=== PATIENT | male | born 1950 | race Caucasian/White ===

== ENCOUNTER 2020-01-31 02:38 | Inpatient (IN) | payer OTHER ==
[2020-01-31] VITALS (41 sets, daily range): BP systolic 91–135; BP diastolic 54–89
[~2020-01-31] VITALS: Ht 182.9 cm; Wt 45.4 kg
--- NOTE | ~2020-01-31 | EMS ---
[address] [address] EMS Patient Care Report Name: KATHERIN SIU Room #: 240-P ADM IN M.R.#: [id number] Admission: 01/31/20 Attend Phys: Elizabeth Gutiérrez MD Discharge: Date of : 54 Report #: [id number] THIS REPORT FOR: //name// Report Transmitted: 02/04/2020 07:59 EMS Care Summary [place], [place]/[facility] Incident [id number] @ 01/31/2020 01:52 Incident Location [address] [place] [address] 423 Patient KATHERIN SIU Male, 70 Years 1950 Patient Address [address] [place] [address] Patient History Stroke/CVA,Gastrointesinal Hemorrhage,Pneumonia,Sepsis,Respiratory Failure, Patient Allergies No known allergies, Patient Medications Metoprolol, Docusate Sodium, Oxycodone, Heparin, Lansoprazole, Aspirin, Acetaminophen, Baclofen, Albuterol, Hydralazine, Chief Complaint BREATHING DIFICULTY Disposition Transported [facility] Reason Breathing Problem Transported To [facility] Narrative DISPATCHED FOR A BREATHING PROBLEM. UPON ARRIVAL ON SCENE, WE HAD TO WAIT AT FRONT DOOR OF FACILITY TO BE LET IN BY STAFF. WE WERE THEN LED DOWN MULTIPLE HALLWAYS TO PT ROOM. UPON ARRIVAL AT ROOM, I WAS INFORMED BY STAFF: "HE MIGHT [address] [address] EMS Patient Care Report Name: KATHERIN SIU Room #: 240-P [facility] IN M.R.#: [id number] Admission: 01/31/20 Attend Phys: Elizabeth Gutiérrez MD Discharge: Date of : 54 Report #: [id number] HAVE IT (COVID-19), I DONT KNOW IF YOU WANT TO PUT ON A SUIT OR ANYTHING, HE IS REALLY NOT DOING GOOD THOUGH." I MADE THE DECISION TO ASSESS THE PT BASED ON HIS DESCRIBED LEVEL OF DISTRESS, BUT ASKED MY PARTNER TO REMAIN IN THE HALLWAY UNTIL I NEEDED HIS HELP. UPON ARRIVAL AT PT BEDSIDE, PT WAS FOUND LYING SUPINE, WITH A TRACHOTY TUBE AND SHIELD THAT WAS CONNECTED TO A SUPPLIED AIR RESPIRATOR PROVIDING HUMIDIFIED AIR. PT WAS LISTLESS AND CYANOTIC AND RESPONDED ONLY BY OPENING HIS EYES, ONLY WHEN I PROVIDED LOUD VERBAL STIMULI. AFTER RAPID INITIAL ASSESSMENT, I REMOVED RESPIRATOR AND PLACED A NRM OVER PT TRACH TO PROVIDE HIGH FLOW O2, DUE TO LOW O2 SATURATION. PT WAS THEN MOVED TO [facility] AND MOVEMENT TO AMBULANCE WAS INITIATED. AFTER A SHORT WHILE, PT BECAME MORE LIVELY AND ALERT AND AWARE OR HIS SURROUNDINGS. PT WAS MOVED INTO AMBULANCE WITHOUT ISSUE. IN AMBULANCE, PT O2 SATURATION WAS STILL NOT ADEQUATE AND HE WAS STILL TAKING SHALLOW RESPIRATIONS, SO I REMOVED NRB MASK AND PLACED A BVM ON TRACH TUBE SUPPLIED WITH 20 LPM SUPPLEMENTAL O2. PT WAS TRANSPORTED EMERGENCY. DURING TRANSPORT, PT STATUS BEGAN TO RAPIDLY IMPROVE. HIS SKIN COLOR AND TEMPERATURE IMPROVED AND HE WAS EVEN ABLE TO START NODDING HIS HEAD TO ANSWER SIMPLE QUESTIONS. WE ARRIVED AT ER AND BEGAN TO MOVE PT OUT OF AMBULANCE, PT INDICATED THAT HE WAS BREATHING MUCH BETTER AND FEELING MUCH BETTER BY NODDING HIS HEAD AND GIVING ME A THUMBS UP WHEN I ASKED HIM. PT WAS MOVED FROM GURNEY TO BED IN ER WITHOUT ISSUE AND PT CARE WAS GIVEN TO ER PHYSICIANS AND RESPIRATORY THERAPISTS. Initial Vitals @02:07P: 140,CO: 3,SpO2: 75, @02:22P: 138,R: 49,SpO2: 82, @02:10P: 139,R: 32,SpO2: 79, @02:23P: 139,R: 24,BP: 85/52,CO: 3,SpO2: 83, @02:26P: 137,R: 31,CO: 1,SpO2: 81, @02:09P: 139,R: 40,SpO2: 76, @02:08P: 140,R: 39,BP: 90/58,Pain: 8/10,GCS: 8,SpO2: 75,Revised Trauma: 9, @02:27P: 138,R: 31,CO: 1,SpO2: 82, @02:32P: 139,R: 35,CO: 0,SpO2: 87, @02:27P: 135,R: 27,BP: 99/72,Pain: 6/10,GCS: 15,CO: 0,SpO2: 87,Revised Trauma: 12,NV Suspected: false @02:24R: 36,CO: 2,SpO2: 81, @02:08P: 139,R: 46,CO: 4,SpO2: 74,NV Suspected: false @02:06P: 130,R: 40,Pain: 8/10,GCS: 8, @02:12P: 142,R: 40,Pain: 8/10,GCS: 12,SpO2: 80,NV Suspected: false Assessments @02:06MENTAL:Confused,Person Oriented,SKIN:Cyanotic,Cold,Diaphoresis,Pale,HEENT:Neck/Airway: Other,Eyes: Right: Other,Eyes: Left: Other,Head/Face: No Abnormalities,LUNG SOUNDS:Right [facility] [address] [place] [address] EMS Patient Care Report Name: KATHERIN SIU Room #: 240-P ADM IN M.R.#: [id number] Admission: 01/31/20 Attend Phys: Elizabeth Gutiérrez MD Discharge: Date of : 54 Report #: [id number] Upper: Other,General: No Abnormalities,Left Upper: No Abnormalities,Left Lower: No Abnormalities,Right Lower: No Abnormalities,ABDOMEN:Right Upper: Other,General: No Abnormalities,Left Upper: No Abnormalities,Left Lower: No Abnormalities,Right Lower: No Abnormalities,PELVIS//GI:Pelvis GUOther,EXTREMITIES:Left Leg: Weakness,Right Arm: Weakness,Right Leg: Weakness,Left Arm: Weakness,Capillary Refill: Right Upper: > 5 Sec,Capillary Refill: Left Upper: > 5 Sec,PULSE:Radial: 1+ Thready,NEURO:No Abnormalities,@02:22MENTAL:Person Oriented,Event Oriented,Place Oriented,SKIN:Cyanotic,Pale,Diaphoresis,HEENT:Neck/Airway: Other,Head/Face: No Abnormalities,LUNG SOUNDS:Right Upper: Other,General: No Abnormalities,Left Upper: No Abnormalities,Left Lower: No Abnormalities,Right Lower: No Abnormalities,ABDOMEN:Right Upper: Other,General: No Abnormalities,Left Upper: No Abnormalities,Left Lower: No Abnormalities,Right Lower: No Abnormalities,PELVIS//GI:EXTREMITIES:Right Arm: Weakness,Right Leg: Weakness,Left Arm: Weakness,Left Leg: Weakness,Capillary Refill: Right Upper: 3 Sec,Capillary Refill: Left Upper: 3 Sec,PULSE:Radial: 1+ Thready,NEURO:No Abnormalities, Impression Shortness of breath Procedures @02:1012-Lead ECGResponse: UnchangedSucceeded@02:08Oxygen FlowRate: 15 Device: Non Re-breather Mask (NRB) Response: ImprovedSucceeded@02:11StretcherResponse: Unchanged@02:19Oxygen FlowRate: 20 Device: Bag Valve Mask (BVM) Response: ImprovedSucceeded@02:06ALS AssessmentResponse: UnchangedSucceeded@02:083-Lead ECGResponse: UnchangedSucceeded Timeline 01:50,Call Received 01:50,Dispatch Notified 01:52,Dispatched 01:55,En Route 02:01,On Scene 02:06,At Patient 02:06,ALS Assessment,Response: UnchangedSucceeded, 02:06,BP: / M,PULSE: 130,RR: 40 R,SPO2: Ox,ETCO2: ,BG: ,PAIN: 8,GCS: 8, 02:07,BP: / M,PULSE: 140,RR: R,SPO2: 75 Ox,ETCO2: ,BG: ,PAIN: ,GCS: , 02:08,Oxygen FlowRate: 15 Device: Non Re-breather Mask (NRB) Response: ImprovedSucceeded, 02:08,3-Lead ECG,Response: UnchangedSucceeded, 02:08,BP: / M,PULSE: 139,RR: 46 R,SPO2: 74 Ox,ETCO2: ,BG: ,PAIN: ,GCS: , 02:08,BP: 90/58 M,PULSE: 140,RR: 39 R,SPO2: 75 Ox,ETCO2: ,BG: ,PAIN: 8,GCS: 8, 02:09,BP: / M,PULSE: 139,RR: 40 R,SPO2: 76 Ox,ETCO2: ,BG: ,PAIN: ,GCS: , 02:10,12-Lead ECG,Response: UnchangedSucceeded, 02:10,BP: / M,PULSE: 139,RR: 32 R,SPO2: 79 Ox,ETCO2: ,BG: ,PAIN: ,GCS: , [facility] [address] [place] [address] EMS Patient Care Report Name: KATHREIN SIU Room #: 240-P ADM IN M.R.#: [id number] Admission: 01/31/20 Attend Phys: Elizabeth Gutiérrez MD Discharge: Date of : 54 Report #: [id number] 02:11,Stretcher,Response: Unchanged 02:12,BP: / M,PULSE: 142,RR: 40 R,SPO2: 80 Ox,ETCO2: ,BG: ,PAIN: 8,GCS: 12, 02:19,Oxygen FlowRate: 20 Device: Bag Valve Mask (BVM) Response: ImprovedSucceeded, 02:22,Depart Scene 02:22,BP: / M,PULSE: 138,RR: 49 R,SPO2: 82 Ox,ETCO2: ,BG: ,PAIN: ,GCS: , 02:23,BP: 85/52 M,PULSE: 139,RR: 24 R,SPO2: 83 Ox,ETCO2: ,BG: ,PAIN: ,GCS: , 02:24,BP: / M,PULSE: ,RR: 36 R,SPO2: 81 Ox,ETCO2: ,BG: ,PAIN: ,GCS: , 02:26,BP: / M,PULSE: 137,RR: 31 R,SPO2: 81 Ox,ETCO2: ,BG: ,PAIN: ,GCS: , 02:27,BP: / M,PULSE: 138,RR: 31 R,SPO2: 82 Ox,ETCO2: ,BG: ,PAIN: ,GCS: , 02:27,BP: 99/72 M,PULSE: 135,RR: 27 R,SPO2: 87 Ox,ETCO2: ,BG: ,PAIN: 6,GCS: 15, 02:29,At Destination 02:32,BP: / M,PULSE: 139,RR: 35 R,SPO2: 87 Ox,ETCO2: ,BG: ,PAIN: ,GCS: , 03:54,Call Closed Disclaimer v1.1 Copyright 2020 [employer] This EMS Care Summary contains data elements from the applicable legal record (which may be displayed differently). It is designed to provide pertinent information for the following purposes: continuity of care, clinical quality, and state data reporting. The complete legal record is available to ED staff and administrators of the receiving hospital in [employer]'s Patient Tracker. All data is provided "as is."
--- NOTE | ~2020-01-31 | EMS ---
[facility] [address] [place] [address] EMS Patient Care Report Name: KATHERIN SIU Room #: PRE M.R.#: [id number] Admission: Attend Phys: Discharge: Date of : 54 Report #: [id number] THIS REPORT FOR: //name// Report Transmitted: 01/31/2020 03:00 EMS Care Summary [place], [place]/[facility] Incident [id number] @ 01/31/2020 01:52 Incident Location [address] [place] [address] 423 Patient KATHERIN SIU Male, 70 Years 1950 Patient Address [address] [place] [address] Patient History Stroke/CVA,Gastrointesinal Hemorrhage,Pneumonia,Sepsis,Respiratory Failure, Patient Allergies No known allergies, Patient Medications Metoprolol, Docusate Sodium, Oxycodone, Heparin, Lansoprazole, Aspirin, Acetaminophen, Baclofen, Albuterol, Hydralazine, Chief Complaint BREATHING DIFICULTY Disposition Transported Lights/[facility] Dispatch Reason Breathing Problem Transported To [facility] Narrative DISPATCHED FOR A BREATHING PROBLEM. UPON ARRIVAL ON SCENE, WE HAD TO WAIT AT FRONT DOOR OF FACILITY TO BE LET IN BY STAFF. WE WERE THEN LED DOWN MULTIPLE HALLWAYS TO PT ROOM. UPON ARRIVAL AT ROOM, I WAS INFORMED BY STAFF: "HE MIGHT [facility] [address] [place] [address] EMS Patient Care Report Name: KATHERIN SIU Room #: PRE Radha#: [id number] Admission: Attend Phys: Discharge: Date of : 54 Report #: [id number] HAVE IT (COVID-19), I DONT KNOW IF YOU WANT TO PUT ON A SUIT OR ANYTHING, HE IS REALLY NOT DOING GOOD THOUGH." I MADE THE DECISION TO ASSESS THE PT BASED ON HIS DESCRIBED LEVEL OF DISTRESS, BUT ASKED MY PARTNER TO REMAIN IN THE HALLWAY UNTIL I NEEDED HIS HELP. UPON ARRIVAL AT PT BEDSIDE, PT WAS FOUND LYING SUPINE, WITH A TRACHOTY TUBE AND SHIELD THAT WAS CONNECTED TO A SUPPLIED AIR RESPIRATOR PROVIDING HUMIDIFIED AIR. PT WAS LISTLESS AND CYANOTIC AND RESPONDED ONLY BY OPENING HIS EYES, ONLY WHEN I PROVIDED LOUD VERBAL STIMULI. AFTER RAPID INITIAL ASSESSMENT, I REMOVED RESPIRATOR AND PLACED A NRM OVER PT TRACH TO PROVIDE HIGH FLOW O2, DUE TO LOW O2 SATURATION. PT WAS THEN MOVED TO [facility] AND MOVEMENT TO AMBULANCE WAS INITIATED. AFTER A SHORT WHILE, PT BECAME MORE LIVELY AND ALERT AND AWARE OR HIS SURROUNDINGS. PT WAS MOVED INTO AMBULANCE WITHOUT ISSUE. IN AMBULANCE, PT O2 SATURATION WAS STILL NOT ADEQUATE AND HE WAS STILL TAKING SHALLOW RESPIRATIONS, SO I REMOVED NRB MASK AND PLACED A BVM ON TRACH TUBE SUPPLIED WITH 20 LPM SUPPLEMENTAL O2. PT WAS TRANSPORTED EMERGENCY. DURING TRANSPORT, PT STATUS BEGAN TO RAPIDLY IMPROVE. HIS SKIN COLOR AND TEMPERATURE IMPROVED AND HE WAS EVEN ABLE TO START NODDING HIS HEAD TO ANSWER SIMPLE QUESTIONS. WE ARRIVED AT ER AND BEGAN TO MOVE PT OUT OF AMBULANCE, PT INDICATED THAT HE WAS BREATHING MUCH BETTER AND FEELING MUCH BETTER BY NODDING HIS HEAD AND GIVING ME A THUMBS UP WHEN I ASKED HIM. PT WAS MOVED FROM GURNEY TO BED IN ER WITHOUT ISSUE AND PT CARE WAS GIVEN TO ER PHYSICIANS AND RESPIRATORY THERAPISTS. Initial Vitals @02:07P: 140,CO: 3,SpO2: 75, @02:22P: 138,R: 49,SpO2: 82, @02:10P: 139,R: 32,SpO2: 79, @02:23P: 139,R: 24,BP: 85/52,CO: 3,SpO2: 83, @02:26P: 137,R: 31,CO: 1,SpO2: 81, @02:09P: 139,R: 40,SpO2: 76, @02:08P: 140,R: 39,BP: 90/58,Pain: 8/10,GCS: 8,SpO2: 75,Revised Trauma: 9, @02:27P: 138,R: 31,CO: 1,SpO2: 82, @02:32P: 139,R: 35,CO: 0,SpO2: 87, @02:27P: 135,R: 27,BP: 99/72,Pain: 6/10,GCS: 15,CO: 0,SpO2: 87,Revised Trauma: 12,[place] Suspected: false @02:24R: 36,CO: 2,SpO2: 81, @02:08P: 139,R: 46,CO: 4,SpO2: 74,NJ Suspected: false @02:06P: 130,R: 40,Pain: 8/10,GCS: 8, @02:12P: 142,R: 40,Pain: 8/10,GCS: 12,SpO2: 80,N[place] Suspected: false Assessments @02:06MENTAL:Confused,Person Oriented,SKIN:Cyanotic,Cold,Diaphoresis,Pale,HEENT:Neck/Airway: Other,Eyes: Right: Other,Eyes: Left: Other,Head/Face: No Abnormalities,LUNG SOUNDS:Right [facility] [address] [place] [address] EMS Patient Care Report Name: KATHERIN SIU Room #: PRE M.R.#: [id number] Admission: Attend Phys: Discharge: Date of : 54 Report #: [id number] Upper: Other,General: No Abnormalities,Left Upper: No Abnormalities,Left Lower: No Abnormalities,Right Lower: No Abnormalities,ABDOMEN:Right Upper: Other,General: No Abnormalities,Left Upper: No Abnormalities,Left Lower: No Abnormalities,Right Lower: No Abnormalities,PELVIS//GI:Pelvis GUOther,EXTREMITIES:Left Leg: Weakness,Right Arm: Weakness,Right Leg: Weakness,Left Arm: Weakness,Capillary Refill: Right Upper: > 5 Sec,Capillary Refill: Left Upper: > 5 Sec,PULSE:Radial: 1+ Thready,NEURO:No Abnormalities,@02:22MENTAL:Person Oriented,Event Oriented,Place Oriented,SKIN:Cyanotic,Pale,Diaphoresis,HEENT:Neck/Airway: Other,Head/Face: No Abnormalities,LUNG SOUNDS:Right Upper: Other,General: No Abnormalities,Left Upper: No Abnormalities,Left Lower: No Abnormalities,Right Lower: No Abnormalities,ABDOMEN:Right Upper: Other,General: No Abnormalities,Left Upper: No Abnormalities,Left Lower: No Abnormalities,Right Lower: No Abnormalities,PELVIS//GI:EXTREMITIES:Right Arm: Weakness,Right Leg: Weakness,Left Arm: Weakness,Left Leg: Weakness,Capillary Refill: Right Upper: 3 Sec,Capillary Refill: Left Upper: 3 Sec,PULSE:Radial: 1+ Thready,NEURO:No Abnormalities, Impression Shortness of breath Procedures @02:1012-Lead ECGResponse: UnchangedSucceeded@02:08Oxygen FlowRate: 15 Device: Non Re-breather Mask (NRB) Response: ImprovedSucceeded@02:11StretcherResponse: Unchanged@02:19Oxygen FlowRate: 20 Device: Bag Valve Mask (BVM) Response: ImprovedSucceeded@02:06ALS AssessmentResponse: UnchangedSucceeded@02:083-Lead ECGResponse: UnchangedSucceeded Timeline 01:50,Call Received 01:50,Dispatch Notified 01:52,Dispatched 01:55,En Route 02:01,On Scene 02:06,At Patient 02:06,ALS Assessment,Response: UnchangedSucceeded, 02:06,BP: / M,PULSE: 130,RR: 40 R,SPO2: Ox,ETCO2: ,BG: ,PAIN: 8,GCS: 8, 02:07,BP: / M,PULSE: 140,RR: R,SPO2: 75 Ox,ETCO2: ,BG: ,PAIN: ,GCS: , 02:08,Oxygen FlowRate: 15 Device: Non Re-breather Mask (NRB) Response: ImprovedSucceeded, 02:08,3-Lead ECG,Response: UnchangedSucceeded, 02:08,BP: / M,PULSE: 139,RR: 46 R,SPO2: 74 Ox,ETCO2: ,BG: ,PAIN: ,GCS: , 02:08,BP: 90/58 M,PULSE: 140,RR: 39 R,SPO2: 75 Ox,ETCO2: ,BG: ,PAIN: 8,GCS: 8, 02:09,BP: / M,PULSE: 139,RR: 40 R,SPO2: 76 Ox,ETCO2: ,BG: ,PAIN: ,GCS: , 02:10,12-Lead ECG,Response: UnchangedSucceeded, 02:10,BP: / M,PULSE: 139,RR: 32 R,SPO2: 79 Ox,ETCO2: ,BG: ,PAIN: ,GCS: , [facility] [address] [facility] [place] [address] EMS Patient Care Report Name: KATHERIN SIU Room #: PRE ER M.R.#: [id number] Admission: Attend Phys: Discharge: Date of : 54 Report #: [id number] 02:11,Stretcher,Response: Unchanged 02:12,BP: / M,PULSE: 142,RR: 40 R,SPO2: 80 Ox,ETCO2: ,BG: ,PAIN: 8,GCS: 12, 02:19,Oxygen FlowRate: 20 Device: Bag Valve Mask (BVM) Response: ImprovedSucceeded, 02:22,Depart Scene 02:22,BP: / M,PULSE: 138,RR: 49 R,SPO2: 82 Ox,ETCO2: ,BG: ,PAIN: ,GCS: , 02:23,BP: 85/52 M,PULSE: 139,RR: 24 R,SPO2: 83 Ox,ETCO2: ,BG: ,PAIN: ,GCS: , 02:24,BP: / M,PULSE: ,RR: 36 R,SPO2: 81 Ox,ETCO2: ,BG: ,PAIN: ,GCS: , 02:26,BP: / M,PULSE: 137,RR: 31 R,SPO2: 81 Ox,ETCO2: ,BG: ,PAIN: ,GCS: , 02:27,BP: / M,PULSE: 138,RR: 31 R,SPO2: 82 Ox,ETCO2: ,BG: ,PAIN: ,GCS: , 02:27,BP: 99/72 M,PULSE: 135,RR: 27 R,SPO2: 87 Ox,ETCO2: ,BG: ,PAIN: 6,GCS: 15, 02:29,At Destination 02:32,BP: / M,PULSE: 139,RR: 35 R,SPO2: 87 Ox,ETCO2: ,BG: ,PAIN: ,GCS: , 03:54,Call Closed Disclaimer v1.1 Copyright 2020 [employer] This EMS Care Summary contains data elements from the applicable legal record (which may be displayed differently). It is designed to provide pertinent information for the following purposes: continuity of care, clinical quality, and state data reporting. The complete legal record is available to ED staff and administrators of the receiving hospital in [facility]'s Patient Tracker. All data is provided "as is."
[2020-01-31] MEDS ORDERED: HYDRALAZIN20 MG/1 ML IV (03:24)
[2020-01-31] MEDS ORDERED: OXYCODONE HYDROC5 GM PER TUBE (03:25)
[2020-01-31] MEDS ORDERED: OZOBAX5 MG/5 ML PER TUBE (03:25)
[2020-01-31] MEDS ORDERED: LOPRESSOR50 MG PER TUBE (03:26)
[2020-01-31] MEDS ORDERED: DULCOLAX STOOL100 M1 PER TUBE (03:26)
[2020-01-31] MEDS ORDERED: PREVACID30 M2 PER TUBE (03:28)
[2020-01-31] MEDS ORDERED: HEPARIN SO1000 UNIT2 SUBQ (03:29)
[2020-01-31] MEDS ORDERED: IPRAT-ALBUT 0.5-3 ML INH (03:29)
[2020-01-31] MEDS ORDERED: CHILDREN'S ASPI81 MG PER TUBE (03:30)
[2020-01-31] MEDS ORDERED: PERIDEX15 ML MUCOUS MEM (03:31)
[2020-01-31 03:32] LABS: ABSOLUTE NEUTROPHILS 15.3 thou/uL (1.4-8.2); BASOPHILS 0.2 % (0.0-2.0); HEMATOCRIT 32.9 % (42.0-52.0); HEMOGLOBIN 10.4 gm/dL (14.0-18.0); LYMPHOCYTES 1.9 % (24.0-44.0); MCH 26.9 pg (26.0-34.0); MCHC 31.6 g/dL (28.0-37.0); MONOCYTES 3.5 % (1.0-8.0); PLATELET COUNT 443 thou/uL (150-400); POLYS 94.4 % (36.0-66.0); RBC 3.87 mil/uL (4.50-6.00); RDW 22.9 % (10.5-14.5); WBC 16.2 thou/uL (4.0-11.0)
[2020-01-31] MEDS ORDERED: MEROPENEM1 GM IV (03:32)
[2020-01-31] MEDS ORDERED: XERAVA IV (03:34)
[2020-01-31] MEDS ORDERED: PERFOROMIS20 MCG/2 M INH (03:34)
[2020-01-31] MEDS ORDERED: TYLENOL325 MG PER TUBE (03:35)
[2020-01-31 03:42] LABS: ANION GAP 8 mmol/L (7-16); BUN 20 mg/dL (7-18); CALCIUM 9.3 mg/dL (8.5-10.1); CHLORIDE 99 mmol/L (98-107); CO2 30 mmol/L (21-32); CREATININE 0.7 mg/dL (0.7-1.3); GLUCOSE 133 mg/dL (74-106); SODIUM 137 mmol/L (136-145)
[2020-01-31 03:48] LABS: ALBUMIN 2.8 g/dL (3.4-5.0); DIRECT BILIRUBIN < 0.1 mg/dL (<0.1-0.2); SGOT 18 U/L (15-37); SGPT 20 U/L (30-65); TOTAL BILIRUBIN 0.4 mg/dL (0.2-1.0); TOTAL PROTEIN 7.4 g/dL (6.4-8.2)
--- NOTE | 2020-01-31 04:02 | NUR ---
ATTEMPTED TO CONTACT TANYA FLOREZMikala, [phone]- NO ANSWER NO ANSWER AT SECOND NUMBER, NOT VALID PHONE LISTING- JESUS SIU
[2020-01-31 04:03] LABS: BE(vivo) 0.1 mmol/L (-2 to +3); HCO3 22.4 mmol/L (22.0-26.0); PCO2 28.7 mmHg (35.0-45.0); PO2 216.2 mmHg (80.0-100.0); sO2 99.6 % (92.0-98.0)
[2020-01-31 04:18] LABS: URINE BILIRUBIN NEGATIVE (Negative); URINE BLOOD NEGATIVE (Negative); URINE CLARITY CLEAR; URINE COLOR YELLOW; URINE GLUCOSE-RANDOM* NEGATIVE (Negative); URINE KETONES NEGATIVE (Negative); URINE LEUKOCYTES-REFLEX NEGATIVE (Negative); URINE NITRITE-REFLEX NEGATIVE (Negative); URINE PROTEIN (DIPSTICK) 2+ (Negative); URINE SPECIFIC GRAVITY >= 1.030 (1.005-1.035); URINE UROBILINOGEN 0.2 E.U./dl (0.2-1.0)
[2020-01-31 04:58] LABS: BACTERIA-REFLEX 1-9 Few /HPF (None Seen); CASTS None Seen /LPF (None Seen); CRYSTALS None Seen /LPF (None Seen); MUCUS 4-6 Moderate strn/LPF (None Seen); SQUAMOUS 0-3 Few /LPF (0-3); URINE RBC 0-2 Rare /HPF (0-2); URINE WBC-REFLEX 0-5 Rare /HPF (0-5)
--- NOTE | 2020-01-31 06:40 | NUR ---
report called no answer
--- NOTE | 2020-01-31 08:15 | NUR ---
Pt admitted to ICU from the emergency deptl.l Pt is awake and alert. Pt is able to follow simple requests. Sinus tachycardia. Pt placed on the vent by RT. No apparent distress. See admission history.
[2020-01-31 17:27] LABS: BE(vivo) -2.4 mmol/L (-2 to +3); HCO3 20.9 mmol/L (22.0-26.0); PCO2 30.8 mmHg (35.0-45.0); PO2 99.9 mmHg (80.0-100.0); sO2 97.9 % (92.0-98.0)
--- NOTE | 2020-01-31 18:40 | NUR ---
Pt has not voided since arrival in ICU this morning. Unable to void in urinal. Bladder scan done with 294 ml of urine noted in bladder. An cathter placed per order from Dr Gutiérrez to insert if residual greater than 250 ml. Incontinent of loose stool following administration of suppository. Pt's son Pantera was contacted of admission to the hospital and provided with contact phone number and pt's privacy code. Covid test is pending. Maintained in isolation. Report given to RN assuming care.
[2020-02-01] VITALS (28 sets, daily range): BP systolic 106–156; BP diastolic 66–111
[2020-02-01 03:57] LABS: HCO3 21.7 mmol/L (22.0-26.0); PCO2 37.1 mmHg (35.0-45.0); PO2 157.9 mmHg (80.0-100.0); pH 7.384 (7.360-7.450)
[2020-02-01 06:10] LABS: HEMATOCRIT 25.1 % (42.0-52.0); MCH 27.8 pg (26.0-34.0); MCHC 32.2 g/dL (28.0-37.0); MCV 86.2 fL (80.0-100.0); RBC 2.92 mil/uL (4.50-6.00); RDW 23.4 % (10.5-14.5); WBC 7.5 thou/uL (4.0-11.0)
[2020-02-01 06:18] LABS: CREATININE 0.5 mg/dL (0.7-1.3)
[2020-02-01 06:19] LABS: HEMOGLOBIN 8.1 gm/dL (14.0-18.0)
--- NOTE | 2020-02-01 07:30 | NUR ---
Heparin gtt therapeutic x 2 lab draws. No signs of bleeding. Pt had 2 small stools during the night. Both were soft and unformed with some mucous. Remains on 40% FiO2 per vent; suctioning small to moderate amounts of thin yellow sputum about q 4 hours. Urine output 450 cc for this shift. PEG remains to LIS. Monitor SR to ST (86 to 106 heart rate).
--- NOTE | 2020-02-01 07:56 | EKG ---
[facility] [place] [address] ELECTROCARDIOGRAM REPORT Name: KATHERIN SIU Room #: 240-P ADM IN M.R.#: [id number] Admission: 01/31/20 Attend Phys: Elizabeth Gutiérrez MD Discharge: Date of : 54 Report #: [id number] THIS REPORT FOR: cc: [facility] - Clinic physician unknown [facility] - Clinic physician unknown Iglesia Palomino MD ~ THIS REPORT FOR: //name// [facility] ED Test Date: 2020-01-31 Test Time: 02:55:27 Pat Name: KATHERIN SIU Department: Room: 240 P Gender: M Monitoring Analyst: JOSE BERMAN : 1950 Requested By: Scottie Yan Order Number: [id number] MD: Iglesia Palomino Measurements Intervals [place] Rate: 130 P: 77 KS: 133 QRS: -42 QRSD: 86 T: 86 QT: 301 QTc: 443 Interpretive Statements Sinus tachycardia Consider right atrial enlargement Left ventricular hypertrophy Inferior infarct, old No previous ECG available for comparison Electronically Signed On 02-01-2020 7:55:09 CDT by Iglesia Palomion [email or web address] <ELECTRONICALLY SIGNED> By: Iglesia Palomino MD 02/01/20 [phone] Iglesia Palomino MD /EPI
[2020-02-01 10:26] LABS: HEMATOCRIT 24.6 % (42.0-52.0)
--- NOTE | 2020-02-01 10:41 | NUR ---
Nutrition: REC If unable to use PEG within 24-48 hrs, REC standard TPN at goal 65 mL/hr. Tube feed recs as follows: Jevity 1.5 at 45 mL/hr goal. Per records, pt taking pureed diet at facility. Follow for refeeding syndrome S/S. Hypokalemia currently present.
--- NOTE | 2020-02-01 13:45 | NUR ---
INITIAL ASSESSMENT: SW reviewed chart and spoke with attending physician. Pt was admitted from [facility] due to pneumonia/respiratory failure/sepsis. Pt is in Enhanced Isolation to r/o COVID-19. Test is pending at this time. Pt has trach/peg in place and is currently requiring ventilator support. Pt with hx of CVA with right sided weakness. MERLYN left voice message for pt's son, Pantera ([phone]). MERLYN contacted [facility] liaison. Pt had just been admitted to [facility] SNF from [facility] and was sent to [facility] ER due to respiratory distress. No weekend discharge planned. Surgery consulted today to evaluate peg tube. MERLYN faxed clinical info to [facility] for review. MERLYN is following to assist as needed with discharge planning.
--- NOTE | 2020-02-01 16:57 | NUR ---
AFEBRILE TODAY, SPECIAL ISOLATION PRECAUTIONS FOR COVID DC'D. DR. THOMAS SAW PATIENT TODAY AND ORDERED PEG TUBE TO GRAVITY. HEPARIN DRIP CONTINUES AT 15U/KG/HR OR 6.5CC/HR. THERAPEUTIC, WILL RECHECK PTT IN AM. NO BLEEDING NOTED. NO BM THIS SHIFT. MINIMAL BEIGE TINGED SPUTUM PER TRACH, PLACED ON WEAN BUT BECAME TACHYPNIC VERY QUICKLY.
[2020-02-01 22:30] LABS: HEMATOCRIT 23.4 % (42.0-52.0); HEMOGLOBIN 7.5 gm/dL (14.0-18.0)
[2020-02-02] VITALS (25 sets, daily range): BP systolic 127–164; BP diastolic 71–91
[2020-02-02 06:12] LABS: HEMATOCRIT 22.6 % (42.0-52.0); HEMOGLOBIN 7.4 gm/dL (14.0-18.0); MCH 28.4 pg (26.0-34.0); MCHC 32.8 g/dL (28.0-37.0); MCV 86.7 fL (80.0-100.0); RBC 2.61 mil/uL (4.50-6.00); RDW 23.1 % (10.5-14.5); WBC 7.9 thou/uL (4.0-11.0)
[2020-02-02 06:46] LABS: CREATININE 0.4 mg/dL (0.7-1.3); POTASSIUM 3.2 mmol/L (3.5-5.1)
--- NOTE | 2020-02-02 07:29 | NUR ---
PATIENT ALERT X3, FOLLOWS COMMANDS. SINUS RHYTHM ON [employer]AGE MERCHANDISER. ON VENTILATOR 40% FIO2, SUCTIONED MODERATE AMOUNT OF THIN MENDEZ SECRETIONS THROUGHOUT THE NIGHT. [place] PATENT WITH GREATER THAN 30ML/HR. US PRESENT AT THE BEDSIDE TO COMPLETE ULTRASOUND OF RIGHT ARM AND BILATERAL LEGS. NO SIGNIFICANT EVENTS THROUGHOUT THE NIGHT. PATIENT PROGRESSING TOWARDS GOALS, WILL CONTINUE TO MONITOR.
--- NOTE | 2020-02-02 17:22 | NUR ---
PT IS CONTINUING VENTLATOR AT CMV MODE, O2 40% TO KEEP O2 94-100%, BUT PT NEEDS MORE TIMES SUCTION FROM TRACH , PT IS CONTINUING IV ABX AND IV FLIUD, PT HAS LOW POTASSIUM AND LOW MAGENSSIUM REPLACEMENT PER PROTOCOL, PT'S PAIN CAN CONTROL BY IV MEDICATION, PT CAN FOLLOW COMMANDS, RN HAS CALLED ID TO REPORT CORRECT SPUTUM CULTURE RESULTS, NO NEW ORDER , CONTINUING SAME IV ABX. PT'S VS ARE STABLE BY THIS TIME.
[2020-02-02 17:40] LABS: MAGNESIUM 1.7 mg/dL (1.8-2.4); POTASSIUM 3.8 mmol/L (3.5-5.1)
--- NOTE | 2020-02-02 18:48 | NUR ---
PT IS CONTINUING SAME RATE 15UNITS/KG/HR ( 6.2ML/HR ) HEPARIN IV DRIP FOR PT'S RUE DVT, PT DOES NOT HAVE S/S OF BLEEDING AT THIS TIME. RN WILL REPORT TO NEXT SHIFT TO KEEP EYE ON PT AND FLOOW PROTOCOLE.
[2020-02-03] VITALS (24 sets, daily range): BP systolic 128–168; BP diastolic 72–115
[2020-02-03 06:37] LABS: HEMATOCRIT 22.3 % (42.0-52.0); HEMOGLOBIN 7.5 gm/dL (14.0-18.0); MCH 28.7 pg (26.0-34.0); MCHC 33.7 g/dL (28.0-37.0); MCV 85.1 fL (80.0-100.0); PLATELET COUNT 265 thou/uL (150-400); RBC 2.62 mil/uL (4.50-6.00); RDW 22.3 % (10.5-14.5); WBC 4.7 thou/uL (4.0-11.0)
[2020-02-03 06:46] LABS: CALCIUM 8.1 mg/dL (8.5-10.1); CREATININE 0.4 mg/dL (0.7-1.3)
[2020-02-03 06:51] LABS: POTASSIUM 2.9 mmol/L (3.5-5.1)
[2020-02-03 07:36] LABS: ANISOCYTOSIS 2+; PLATELET ESTIMATE NORMAL
--- NOTE | 2020-02-03 10:24 | NUR ---
RT PLACED PT ON TRACH SHIELD.
--- NOTE | 2020-02-03 17:46 | NUR ---
PT ON TRACH SHIELD MOST OF THE DAY. REQUESTS TO BE TURNED EVERY 45 MINUTES TO 1 HR. HAD A SMEAR OF A BOWEL MOVEMENT EARLIER. PEG CHANGED FROM DD TO LIWS PER DR MCKEON. PT ON HEPARIN GTT, PTT WAS WNL THIS MORNING, ANOTHER WILL BE DONE TOMORROW. IVF WERE DECREASED FROM 125 MLS/HR TO 75 MLS/HR BY DR HO. PT HAD GOOD URINE OUTPUT. ASSESSMENT CHARTED.
[2020-02-04] VITALS (24 sets, daily range): BP systolic 129–162; BP diastolic 72–110
[2020-02-04 05:00] LABS: HEMATOCRIT 28.6 % (42.0-52.0); HEMOGLOBIN 9.4 gm/dL (14.0-18.0); MCH 28.3 pg (26.0-34.0); MCHC 32.8 g/dL (28.0-37.0); MCV 86.3 fL (80.0-100.0); RBC 3.31 mil/uL (4.50-6.00); RDW 22.4 % (10.5-14.5); WBC 6.4 thou/uL (4.0-11.0)
[2020-02-04 05:06] LABS: CALCIUM 8.5 mg/dL (8.5-10.1); CREATININE 0.4 mg/dL (0.7-1.3); POTASSIUM 3.9 mmol/L (3.5-5.1)
--- NOTE | 2020-02-04 06:06 | NUR ---
No events overnight. Pt has remained stable. Or titrated up to 50% trache mask at 2100 for decrease in sat down to mid 80's that did not correct after suctioning. Able to tiratre down to 40% at 0400. Suctioning pt approximately q 2 hours, moderate amounts of thin yellow sputum. Monitor remains sinus rhythm- sinus tach, 90-106. Urine output 1150 cc for this shift.
--- NOTE | 2020-02-04 09:49 | 2DMMODE ---
[facility] [address] [place] [address] 2 D/M-MODE ECHOCARDIOGRAM Name: KATHERIN SIU Room #: 240-P ADM IN M.R.#: [id number] Admission: 01/31/20 Attend Phys: Elizabeth Gutiérrez MD Discharge: Date of : 54 Report #: [id number] THIS REPORT FOR: cc: [facility] - Clinic physician unknown [facility] - Clinic physician unknown Moncho Fairbanks MD ~ APPROVED REPORT Study performed: 02/04/2020 09:00:05 EXAM: Comprehensive 2D, Doppler, and color-flow Echocardiogram Patient Location: ICU Room #: 240 Status: routine BSA: 0.59 HR: 95 bpm BP: 146/101 mmHg Rhythm: NSR Other Information Study Quality: Technically Difficult Technically limited study due to body habitus, patient on ventilator, inability to position patient. Indications Hypertension/HDD Respiratory failure. Aortic Valve AoV Peak Froilan.: 0.92 m/s AO Peak Gr.: 3.40 mmHg LVOT Max P.99 mmHg LVOT Max V: 0.86 m/s Mitral Valve E/A Ratio: 0.7 MV Decel. Time: 297.57 ms MV E Max Froilan.: 0.68 m/s MV A Froilan.: 0.99 m/s MV PHT: 86.30 ms Pulmonary Valve PV Peak Froilan.: 0.70 m/s PV Peak Gr.: 1.94 mmHg [facility] [address] [place] [address] 2 D/M-MODE ECHOCARDIOGRAM Name: KATHERIN SIU Room #: 240-P ADM IN M.R.#: [id number] Admission: 01/31/20 Attend Phys: Geneva Nunez Discharge: Date of : 54 Report #: [id number] Left Ventricle The left ventricle is normal size. There is normal LV segmental wall motion. There is normal left ventricular wall thickness. Left ventricular systolic function is normal. The left ventricular ejection fraction is within the normal range. LVEF is 55-60%. This study is not technically sufficient to allow evaluation of the LV diastolic function. Right Ventricle The right ventricle is normal size. The right ventricular systolic function is normal. Atria The left atrium size is normal. The right atrium size is normal. Aortic Valve The aortic valve is normal in structure. No aortic regurgitation is present. There is no aortic valvular stenosis. Mitral Valve The mitral valve is normal in structure. There is no mitral valve regurgitation noted. No evidence of mitral valve stenosis. Tricuspid Valve The tricuspid valve is normal in structure. There is no tricuspid valve regurgitation noted. Pulmonic Valve The pulmonary valve is normal in structure. There is no pulmonic valvular regurgitation. Great Vessels The aortic root is normal in size. IVC is normal in size and collapses >50% with inspiration. Pericardium There is no pericardial effusion. <Conclusion> The left ventricle is normal size. There is normal left ventricular wall thickness. Left ventricular systolic function is normal. The right ventricle is normal size. The left atrium size is normal. The aortic valve is normal in structure. [facility] [address] [place] [address] 2 D/M-MODE ECHOCARDIOGRAM Name: KATHERIN SIU Room #: 240-P ADM IN M.R.#: [id number] Admission: 01/31/20 Attend Phys: Geneva Nunez Discharge: Date of : 54 Report #: [id number] There is no mitral valve regurgitation noted. There is no tricuspid valve regurgitation noted. <ELECTRONICALLY SIGNED> By: Moncho Fairbanks MD 02/04/2048 7 Moncho Fairbanks MD /INF
--- NOTE | 2020-02-04 09:57 | NUR ---
Nutrition: PT NPO x 4 days with inability to resume tube feeds due to ileus. Abdoment NT, ND, soft. REC change IVFs to Clinimix PPN and add 250 mL 20% lipids daily until tube feeds can start. Tube feed recs are Jevity 1.5 to reach 45 mL/hr goal. pt is high refeeding syndrome risk.
--- NOTE | 2020-02-04 10:30 | NUR ---
DUE TO PREVIOUS H/O STROKE PT HAS HEMIPARESIS TO RIGHT SIDE AND ONLY GROSS MOTOR FUNCTION OF LEFT HAND, PRIMARILY LEFT INDEX FINGER. PT IS ABLE TO USE CALL LIGHT. PT IS WEAK BUT DOES TRY TO HELP WITH TURNING HIM TO THE RIGHT SIDE. PT IS ABLE TO GESTURE AND MOUTH WORDS WHEN HE WANTS TO BE TURNED. PT HAS SMALL NON BLANCHABLE RED SPOT TO COCCYX. AREA CLEANED WITH SALINE AND Z-GUARD APPLIED AND FOAM BORDER DRESSING APPLIED PER WOUND CARE ORDERS.
--- NOTE | 2020-02-04 11:51 | NUR ---
chart review, discussed during los, possible ready for dc back to centers. updated clinical to be sent to [facility].
--- NOTE | 2020-02-04 14:24 | NUR ---
DR. MCKEON STATES HE WILL REPLACE PT'S PEG TUBE AT BEDSIDE IN AM AND WOULD LIKE A PEG TUBE READY IN ROOM. GI CALLED WITH NO ANSWER, SURGERY CALLED AND STATES THEY WILL TRY AND LOCATE ONE BEFORE MORNING.
--- NOTE | 2020-02-04 15:34 | NUR ---
FAXED CLINICAL UPDATE TO [facility] RECEIVED CONFIRMATION AND LEFT MSG WITH MICHELLE IN ADM OF POSS DC TOMORROW. DP TO FOLLOW.
[2020-02-05] VITALS (10 sets, daily range): BP systolic 126–160; BP diastolic 72–91
--- NOTE | 2020-02-05 06:38 | NUR ---
PATIENT IS PROGRESSING SLOWLY IN HIS CARE PLAN. VITAL SIGNS STABLE WITH PATIENT HAVING NO COMPLAINTS OF NAUSEA. PATIENT DID COMPLAIN OF PAIN FREQUENTLY WHICH WAS TREATED WITH MEDICATION AND NON PHARMACOLOGICAL INTERVENTIONS. FULLY ORIENTED, PATIENT IS ABLE TO CALL FOR NEEDS. BREATHING STABLE ON TRACH SHIELD EVIDENCED BY ASSESSMENT AND CONTINUOUS SATURATION MONITORING. WOUND CARE PER ORDER WITH FREQUENT TURNS PROVIDED. CONTINUE PLAN OF CARE.
[2020-02-05] MEDS ORDERED: XARELTO20 MG PO (12:56)
[2020-02-05] MEDS ORDERED: XARELTO15 MG PO (12:56)
[2020-02-05] MEDS ORDERED: MINOCYCLINE 5050 M1 PO (13:10)
[2020-02-05] MEDS ORDERED: FLOMAX0.4 MG PO ×2 (14:10→14:40)
--- NOTE | 2020-02-05 14:41 | NUR ---
PT DISCHARGING TODAY TO [facility] FAXED DC ORDERS/SUMMARY TO FACILITY SPOKE WITH TAMEKA IN ADM SHE RECEIVED ORDERS AND ARRANGED TRANSPORT BY [facility] FOR [id number] TODAY. LEFT MSG WITH PT'S SON (SAMUEL) OF DC AND TIME OF TRANSPORT. UNIT NOTIFIED AND CHART COPY PER US RN TO CALL REPORT TO [phone].
--- NOTE | 2020-02-05 14:45 | NUR ---
REPORT CALLED TO [facility], PATIENT TO RETURN TO FACILITY IN STABLE CONDITION. PEG TUBE REMOVED BY DR. THOMAS AND G-TUBE PLACED. TOLERATING TUBE FEEDS, BM TODAY. TRACH SECURE AND TRACH COLLAR WITH 35% O2.
--- NOTE | 2020-02-06 14:05 | HC ---
[facility] [place] [address] [place] [address] CONSULTATION Name: KATHERIN SIU Room #: 240-P [facility] IN M.R.#: [id number] Admission: 01/31/20 Attend Phys: Elizabeth Gutiérrez MD Discharge: 02/05/20 Date of : 54 Report #: [id number] THIS REPORT FOR: cc: [facility] - Clinic physician unknown [facility] - Clinic physician unknown Christopher Hernandez MD ~ CC: Elizabeth GERMAN unknown DATE OF SERVICE: 02/01/2020 CONSULTING PHYSICIAN: Dr. Hernandez. REASON FOR CONSULTATION: Possible feculent output from feeding tube. ASSESSMENT: 1. Ileus. 2. Possible gastrointestinal bleed. RECOMMENDATIONS: 1. Thank you for the consultation. We will follow along. 2. The patient has had return of bowel function. Would recommend placing the PEG tube to dependent drainage for the time being while stabilizing and sorting out possible GI bleed. 3. If ongoing concerns for GI bleed persist, consider Gastroenterology consultation. However, per RN, there have been no bloody stools witnessed. HISTORY OF PRESENT ILLNESS: The patient is a 70-year-old gentleman who was transferred from a assisted. The concern is because his hemoglobin keeps dropping, however there has not been any bloody stools witnessed. Upon arrival to our ICU, the patient has been witnessed to have feculent output from his PEG tube. General Surgery was consulted for possible bowel obstruction and possible GI bleed. PAST MEDICAL HISTORY: 1. History of stroke. 2. Tracheostomy. 3. PEG tube. 4. History of DVT. 5. Hypernatremia. 6. Respiratory failure. 7. Metabolic encephalopathy. 8. History of GI bleed. PAST SURGICAL HISTORY: 1. Tracheostomy. [facility] [address] [place] [address] CONSULTATION Name: KATHERIN SIU Room #: 240-P DIS IN M.R.#: [id number] Admission: 01/31/20 Attend Phys: Elizabeth Gutiérrez MD Discharge: 02/05/20 Date of : 54 Report #: [id number] 2. PEG tube. SOCIAL HISTORY: Former smoker. No recreational drug use. No alcohol use. FAMILY HISTORY: Unobtainable. REVIEW OF SYSTEMS: Unobtainable. PHYSICAL EXAMINATION: VITAL SIGNS: Temperature 36.2, pulse 99, respiratory rate 19, blood pressure 155/95, pulse ox 100%. GENERAL: Alert, no apparent distress. HEENT: PERRLA, EOMI, MMM, NCAT. NECK: Tracheostomy in place. CARDIOVASCULAR: Regular rhythm and rate. Hemodynamically stable. Normal capillary refill. Regular rhythm and rate. Hemodynamically stable. Normal capillary refill. PULMONARY: Nonlabored. Clear to auscultation bilaterally. ABDOMEN: Soft, mild distention, no tenderness, no guarding, no rebound, no rigidity. He has a G-tube in place in the left upper quadrant. EXTREMITIES: Calves soft, nontender, no edema. SKIN: No rashes or bruises. PSYCHIATRIC: Normal mood and affect Normal mood and affect. NEUROLOGICAL: Grossly intact. CN II-XII grossly intact. MUSCULOSKELETAL: 5/5 strength in upper extremities and lower extremities bilaterally. LYMPHATICS: No cervical, inguinal, or supraclavicular lymphadenopathy. LABORATORY DATA: White blood count is 7.5, hemoglobin is 8.1, platelets 269. Sodium 143, potassium 3, creatinine 0.5. IMAGING: CT of the chest, abdomen and pelvis. Impression: 1. Patchy left perihilar infiltrate with dense consolidation of the medial segment of the left lower lobe, tiny left pleural effusion. There is mild curvilinear scarring versus atelectasis within the anterior segment of the right lower lobe. Filling defects within the visualized portion of the inferior right internal jugular vein, which contains a venous catheter. 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 This could be confirmed with ultrasound imaging if it was felt clinically indicated. Significant fluid-filled gaseous distention of the stomach. Moderate diffuse gaseous distention of the colon with a large amount of retained stool within the colon. The appearance is suggestive of ileus. No ascites, free air or pathologic adenopathy. Extensive bilateral renal cysts. Tracheostomy. [address] [address] CONSULTATION Name: KATHERIN SIU Room #: 240-P DIS IN M.R.#: [id number] Admission: 01/31/20 Attend Phys: Elizabeth Gutiérrez MD Discharge: 02/05/20 Date of : 54 Report #: [id number] 2. Bilateral prostate fiducial markers. Gastrostomy tube. <ELECTRONICALLY SIGNED> By: Christopher Hernandez MD 02/06/20 [id number] Christopher Hernandez MD /nt
--- NOTE | 2020-02-13 08:07 | HC ---
[facility] [address] [place] [address] CONSULTATION Name: KATHERIN SIU Room #: 240-P [facility] IN M.R.#: [id number] Admission: 01/31/20 Attend Phys: Elizabeth Gutiérrez MD Discharge: 02/05/20 Date of : 54 Report #: [id number] THIS REPORT FOR: cc: [facility] - Clinic physician unknown [facility] - Clinic physician unknown Jagdish Renteria MD ~ CC: Elizabeth GERMAN unknown DATE OF SERVICE: 01/31/2020 WOUND CARE CONSULTATION PERSONAL PHYSICIAN: Ca. CHIEF COMPLAINT: Sacrococcygeal decubitus ulcer. HISTORY OF PRESENT ILLNESS: This is a 70-year-old white male who is currently on the ventilator in ICU for qqmtf-ka-lcfvnmb respiratory failure. The patient has a history of previous CVA with prolonged hospitalization, status post tracheostomy placement, PEG tube placement. The patient most recently was in a long-term acute care facility when he had the respiratory event which brought him back to the hospital at [facility]. The patient upon admission was noted to have a stage 3 decubitus ulcer, which we have been asked to follow up. This has been present prior to admission. The patient, at this point in time, is sedated on the ventilator and unable to give any history. Nursing staff states the patient has no other associated wounds. PAST MEDICAL HISTORY: Significant for previous CVA, cefkh-rd-xluqwqk respiratory failure, hypertension, metabolic encephalopathy, GI bleeding, status post tracheostomy and PEG tube placement. CURRENT MEDICATIONS: Multiple, I reviewed the patient's medication list. DRUG ALLERGIES: None. SOCIAL HISTORY: The patient has a history of 2 packs a day smoking as well as a history of previous alcohol use, currently is in a long-term care facility. FAMILY HISTORY AND REVIEW OF SYSTEMS: Unobtainable, given the fact the patient is intubated and sedated. PHYSICAL EXAMINATION: VITAL SIGNS: Pulse 100, respirations 21, BP 141/90. The patient is afebrile. GENERAL: This is a sedated white male who is in no obvious distress, appears chronically ill. [facility] [address] [place] [address] CONSULTATION Name: KATHERIN SIU Room #: 240-P [facility] IN M.R.#: [id number] Admission: 01/31/20 Attend Phys: Elizabeth Gutiérrez MD Discharge: 02/05/20 Date of : 54 Report #: [id number] HEENT: Normocephalic, atraumatic. Mucous membranes are somewhat dry. NECK: Has tracheostomy in place without excoriation. LUNGS: Diminished breath sounds heard throughout. HEART: Tachycardic. ABDOMEN: Soft, nontender. PEG tube placed and functioning. Evaluation of sacrococcygeal region reveals a stage 3 decubitus ulcer, which is fairly clean with what appears to be 100% slough. Periwound is otherwise intact. There is no significant undermining or tunneling. There is no involvement of any deeper structures. EXTREMITIES: The patient's bilateral heels are intact. NEUROLOGIC: Cranial nerves 2-12 grossly intact. LABORATORY VALUES: White count 16.2, hemoglobin 10.4. BUN 17, creatinine 0.5, albumin 2.8. IMPRESSION: 1. Stage 3 sacrococcygeal decubitus ulcer present on admission. 2. Nkggx-vp-rjzzjer respiratory failure. 3. Protein-calorie malnutrition, is moderate with albumin of 2.8. 4. Generalized debility. PLAN: At this time, we will use Z-Guard to the ulcer 3 times daily. The patient will be continued on a low air loss mattress, having turned every 2 hours. We will continue all other current medications at this time. I appreciate ability to consult. We will continue to follow the patient. <ELECTRONICALLY SIGNED> By: Jagdish Renteria MD 02/13/20 0807 [id number] Jagdish Renteria MD /nt
== END 2020-02-05 14:45 | DRG 871 ==
LOC: ER 02:38 → EROBS 05:41 → ICU 05:41
PROVIDERS: Emergency Medicine; Internal Medicine Pulmonary Disease; Nurse Practitioner Family; ADMIT Hospitalist; ATTEND Hospitalist
PROC: 5A1945Z Respiratory Ventilation, 24-96 Consecutive Hours (ICD-10-PCS; principal; 2020-01-31)
PROC: B54MZZA Ultrasonography of Right Upper Extremity Veins, Guidance (ICD-10-PCS; 2020-01-31)
PROC: 05HY33Z Insertion of Infusion Device into Upper Vein, Percutaneous Approach (ICD-10-PCS; 2020-01-31)
PROC: 0DP6XUZ Removal of Feeding Device from Stomach, External Approach (ICD-10-PCS; 2020-02-05)
PROC: 0DH63UZ Insertion of Feeding Device into Stomach, Percutaneous Approach (ICD-10-PCS; 2020-02-05)
DX: A41.9 Sepsis, unspecified organism (principal); L89.153 Pressure ulcer of sacral region, stage 3; J96.21 Acute and chronic respiratory failure with hypoxia; J15.6 Pneumonia due to other Gram-negative bacteria; J69.0 Pneumonitis due to inhalation of food and vomit; E44.0 Moderate protein-calorie malnutrition; K56.7 Ileus, unspecified; I82.C11 Acute embolism and thrombosis of right internal jugular vein; J98.11 Atelectasis; Z16.35 Resistance to multiple antimicrobial drugs; Z68.1 Body mass index [BMI] 19.9 or less, adult; I82.A11 Acute embolism and thrombosis of right axillary vein; I10 Essential (primary) hypertension; E78.5 Hyperlipidemia, unspecified; E87.6 Hypokalemia; J98.6 Disorders of diaphragm; K59.00 Constipation, unspecified; R13.10 Dysphagia, unspecified; E11.9 Type 2 diabetes mellitus without complications; Z86.14 Personal history of Methicillin resistant Staphylococcus aureus infection; Z03.818 Encounter for observation for suspected exposure to other biological agents ruled out; Z86.73 Personal history of transient ischemic attack (TIA), and cerebral infarction without residual deficits; Z93.0 Tracheostomy status; Z93.1 Gastrostomy status; Z87.891 Personal history of nicotine dependence; Z86.718 Personal history of other venous thrombosis and embolism
CPT/HCPCS: 10078